=== PATIENT | female | born 1945 | race Caucasian/White ===

== ENCOUNTER 2021-02-05 11:24 | Observation (INO) | payer MEDICARE, MEDICAID ==
[2021-01-31 15:55] LABS: BASOPHILS # (AUTO) 0.1 X10'3 (0-0.2); BASOPHILS % (AUTO) 0.9 % (0-1); EOSINOPHILS # (AUTO) 0.7 X10'3 (0-0.9); EOSINOPHILS % (AUTO) 8.5 % (0-6); HEMATOCRIT 39.4 % (35.0-45.0); LYMPHOCYTES # (AUTO) 1.2 X10'3 (1.1-4.8); LYMPHOCYTES % (AUTO) 15.5 % (21-51); MEAN CORPUSCULAR HEMOGLOBIN 27.5 PG (27.0-31.0); MEAN CORPUSCULAR HGB CONC 32.9 g/dL (33.0-36.5); MEAN CORPUSCULAR VOLUME 83.4 FL (78-98); MEAN PLATELET VOLUME 8.7 FL (7.4-10.4); MONOCYTES # (AUTO) 0.7 X10'3 (0-0.9); MONOCYTES % (AUTO) 8.8 % (2-12); NEUTROPHILS # (AUTO) 5.3 X10'3 (1.8-7.7); NEUTROPHILS % (AUTO) 66.3 % (42-75); PLATELET COUNT 208 X10'3 (140-440); RED BLOOD COUNT 4.72 X10'6 (4.20-5.60); RED CELL DISTRIBUTION WIDTH 16.3 % (11.5-14.5)
[2021-01-31 16:06] LABS: PARTIAL THROMBOPLASTIN TIME 28 SECONDS (22-32)
[2021-01-31 16:10] LABS: ALANINE AMINOTRANSFERASE 97 U/L (12-78); ALBUMIN 3.8 G/DL (3.4-5.0); ALKALINE PHOSPHATASE 317 IU/L (46-116); ANION GAP 11 (8-16); ASPARTATE AMINO TRANSFERASE 74 U/L (10-37); BILIRUBIN,TOTAL 0.9 MG/DL (0.1-1.0); BLOOD UREA NITROGEN 17 MG/DL (7-18); BUN/CREATININE RATIO 12.8 (6.6-38.0); CALCIUM 9.4 MG/DL (8.5-10.1); CHLORIDE 102 MMOL/L (99-107); CREATININE 1.33 MG/DL (0.40-0.90); GLUCOSE 90 MG/DL (70-104); POTASSIUM 3.3 MMOL/L (3.5-5.1); SODIUM 140 MMOL/L (135-145); TOTAL CARBON DIOXIDE 27.4 MMOL/L (24-32); TOTAL PROTEIN 7.7 G/DL (6.4-8.2); eGFR 39 ML/MIN
[~2021-02-05] VITALS: Ht 157.5 cm; Wt 49.8 kg
[2021-02-05] VITALS (19 sets, daily range): BP systolic 140–197; BP diastolic 56–108
[~2021-02-05 11:24] MED LIST: ASPI-1071 PO; ATOR20TA66 PO; GABA-530 PO; LOSA25TA96 PO; METO50TA16 PO
[2021-02-05] MEDS ORDERED: diphenhydrAMINE 25mg capsule PO PRN (11:45)
[2021-02-05] MEDS ORDERED: LORazepam 0.5 MG tablet PO PRN (11:45)
[2021-02-05] MEDS ORDERED: nitroGLYCERIN 0.4mg SUBLingual tab SL PRN (11:45)
[2021-02-05] MEDS: normal saline 1,000 ML IV SCH ×2 (12:26→22:05)
[2021-02-05] MEDS ORDERED: FURO-150 PO (12:34)
[2021-02-05] MEDS ORDERED: ASPI81TA52 PO (12:34)
[2021-02-05] MEDS ORDERED: ATOR40TA PO (12:34)
[2021-02-05] MEDS ORDERED: LIDOcaine 1% (10mg/ml)w/preservative injection 20ml MDV ONE (13:17)
[2021-02-05] MEDS ORDERED: iohexol 350 MG/ML 50ML vial IV ONE ×2 (13:17→14:04)
[2021-02-05] MEDS ORDERED: iohexol 350MG/ML 100ml bottle IV ONE (13:17)
[2021-02-05] MEDS ORDERED: fentaNYL/PF 50MCG/1 ML 2ML syringe ONE (13:18)
[2021-02-05] MEDS ORDERED: midazolam 1 mg/ML 2ml injection ONE (13:18)
[2021-02-05] MEDS ORDERED: hydrALAZINE 20mg/ml inj. IV ONE (14:03)
[2021-02-05] MEDS ORDERED: proCHLORperazine 10 MG/2 ml inj ONE (14:31)
[2021-02-05] MEDS ORDERED: enalaprilat dihydrate 2.5mg/2ml vial IV ONE (14:35)
[2021-02-05] MEDS ORDERED: nitroGLYCERIN-Tridil 50MG/D5W 250 ML IV ONE (14:35)
[2021-02-05 14:46] LABS: ISTAT HGB ART 11.6 g/dl (12.0-16.0); ISTAT Hct ART 34 %PCV (35-48); ISTAT O2 SATURATION ARTERIAL 98 % (95-98); ISTAT SOURCE ART
[2021-02-05] MEDS ORDERED: magnesium Cl slow-release 64mg tablet PO PRN (16:00)
[2021-02-05] MEDS ORDERED: ondansetron/PF 4mg/2ml inj IV PRN ×2 (16:00→17:05)
[2021-02-05] MEDS ORDERED: HYDROcodone/acetaminophen 10/325mg tab PO PRN ×2 (16:00→17:05)
[2021-02-05] MEDS ORDERED: acetaminophen 325mg tablet PO PRN ×2 (16:00)
[2021-02-05] MEDS ORDERED: HYDROcodone/acetaminophen 5mg/325mg tablet PO PRN ×2 (16:00→17:05)
[2021-02-05] MEDS ORDERED: mag hydrox/Alum hydrox/simeth 30ml oral suspension PO PRN (16:00)
[2021-02-05] MEDS ORDERED: potassium Cl 40MEQ/1/2NS 520ml 520 ML IV PRN ×2 (16:00)
[2021-02-05] MEDS ORDERED: magnesium 2GM in 50ml NS 50 ML IV PRN (16:00)
[2021-02-05] MEDS ORDERED: magnesium 4gm in 100ml NS 100 ML IV PRN (16:00)
[2021-02-05] MEDS ORDERED: normal saline 1000ml 1,000 ML IV SCH (16:00)
[2021-02-05] MEDS ORDERED: magnesium hydroxide 30ml (MOM) UD suspension PO PRN (16:00)
[2021-02-05] MEDS ORDERED: potassium Cl 20 mEq SR tablet PO PRN (16:00)
[2021-02-05] MEDS ORDERED: proCHLORperazine 10 MG/2 ml inj IV PRN (17:05)
[2021-02-05] MEDS ORDERED: OXAZEpam 15mg capsule PO PRN (17:05)
[2021-02-05] MEDS: metoprolol tartrate 12.5mg (1/2 tablet) PO SCH ×2 (17:37→20:38)
--- NOTE | 2021-02-05 18:45 | NUR ---
Problems reprioritized. Patient report given, questions answered & plan of care reviewed with MARIELLA Ross, I will be taking pt to room 3021 shortly.
--- NOTE | 2021-02-05 19:00 | NUR ---
VSS, pt's R groin dsg CDI, pt is in room #3021 stable and in no distress at this time, pt's , son and pt's RN at pts bedside.
[2021-02-05] MEDS: losartan 25mg tablet PO SCH (20:38)
[2021-02-05] MEDS: gabapentin 100mg capsule PO SCH (20:39)
[2021-02-05] MEDS: potassium Cl 20 mEq SR tablet PO PRN (20:39)
[2021-02-05] MEDS: K and/or MAG REPLACEMENT MC SCH (20:41)
[2021-02-05] MEDS ORDERED: temazepam 15mg capsule PO PRN (21:00)
--- NOTE | 2021-02-05 21:51 | NUR ---
PAGER ID: [phone] MESSAGE: [id number] Melvi middleton , post cath today, htn ranging 180-200 sys and 80-100 mary . hr is nsr in 80s . no chest pain of any kind [facility]
[2021-02-05] MEDS: hydrALAZINE 20mg/ml inj. IV PRN (22:01)
[2021-02-06] MEDS: potassium Cl 20 mEq SR tablet PO PRN ×2 (00:28→05:04)
[2021-02-06 00:38] VITALS: BP 164/70
[2021-02-06 02:00] VITALS: BP 160/73
[2021-02-06 06:00] VITALS: BP 163/88
--- NOTE | 2021-02-06 06:27 | NUR ---
Problems reprioritized. Patient report given, questions answered & plan of care reviewed with MARIELLA Ochoa.
[2021-02-06 07:10] LABS: BASOPHILS # (AUTO) 0.1 X10'3 (0-0.2); BASOPHILS % (AUTO) 1.2 % (0-1); EOSINOPHILS # (AUTO) 0.6 X10'3 (0-0.9); EOSINOPHILS % (AUTO) 7.8 % (0-6); HEMATOCRIT 32.1 % (35.0-45.0); HEMOGLOBIN 10.6 g/dl (12.0-16.0); LYMPHOCYTES # (AUTO) 1.3 X10'3 (1.1-4.8); LYMPHOCYTES % (AUTO) 15.4 % (21-51); MEAN CORPUSCULAR HGB CONC 33.2 g/dL (33.0-36.5); MEAN CORPUSCULAR VOLUME 84.4 FL (78-98); MEAN PLATELET VOLUME 8.6 FL (7.4-10.4); MONOCYTES # (AUTO) 0.9 X10'3 (0-0.9); MONOCYTES % (AUTO) 10.6 % (2-12); NEUTROPHILS # (AUTO) 5.3 X10'3 (1.8-7.7); PLATELET COUNT 209 X10'3 (140-440); RED CELL DISTRIBUTION WIDTH 16.6 % (11.5-14.5); WHITE BLOOD COUNT 8.2 X10'3 (4.5-11.0)
[2021-02-06 07:21] LABS: PARTIAL THROMBOPLASTIN TIME 29 SECONDS (22-32)
[2021-02-06] MEDS: gabapentin 100mg capsule PO SCH ×2 (07:27→12:24)
[2021-02-06] MEDS: losartan 25mg tablet PO SCH (07:28)
[2021-02-06] MEDS: metoprolol tartrate 12.5mg (1/2 tablet) PO SCH (07:28)
[2021-02-06 07:32] LABS: ALANINE AMINOTRANSFERASE 51 U/L (12-78); ALBUMIN 2.6 G/DL (3.4-5.0); ALBUMIN/GLOBULIN RATIO 0.8 (1.1-1.5); ALKALINE PHOSPHATASE 320 IU/L (46-116); ANION GAP 10 (8-16); ASPARTATE AMINO TRANSFERASE 34 U/L (10-37); BILIRUBIN,TOTAL 0.6 MG/DL (0.1-1.0); BLOOD UREA NITROGEN 14 MG/DL (7-18); BUN/CREATININE RATIO 12.5 (6.6-38.0); CALCIUM 8.4 MG/DL (8.5-10.1); CHLORIDE 109 MMOL/L (99-107); CHOLESTEROL 136 MG/DL (0-200); CREATININE 1.12 MG/DL (0.40-0.90); GLUCOSE 85 MG/DL (70-104); HDL CHOLESTEROL 46 MG/DL (35-60); LDL CHOLESTEROL 70 MG/DL (50-100); MAGNESIUM 1.6 MG/DL (1.5-2.4); POTASSIUM 3.8 MMOL/L (3.5-5.1); SODIUM 141 MMOL/L (135-145); TOTAL CARBON DIOXIDE 21.8 MMOL/L (24-32); TOTAL PROTEIN 5.8 G/DL (6.4-8.2); TRIGLYCERIDES 69 MG/DL (20-135); eGFR 47 ML/MIN
[2021-02-06] MEDS ORDERED: furosemide 40mg tablet PO SCH (08:00)
[2021-02-06] MEDS ORDERED: potassium chloride 10mEq ER tablet PO SCH (08:00)
[2021-02-06] MEDS ORDERED: atorvastatin 20mg tablet PO SCH (08:00)
[2021-02-06] MEDS ORDERED: aspirin 81mg tablet.DR PO SCH (08:00)
[2021-02-06] MEDS: K and/or MAG REPLACEMENT MC SCH (08:00)
[2021-02-06 09:03] LABS: ABG HCO3 20.9 mmol/L (22.0-26.0); ABG OXYGEN SATURATION 94.6 % (94-97); ABG PCO2 (T) 33.5 mmHg (32.0-45.0); ABG PO2 (T) 72.3 mmHg (75.0-100.0); ALLEN'S TEST POSITIVE; FCOHb 0.4 % (0.0-3.9); FMetHb 0.4 % (0.0-1.5); FO2Hb 93.8 % (94-97); TOTAL HEMOGLOBIN 11.9 G/dl (12.0-16.0)
[2021-02-06] MEDS ORDERED: albuterol 2.5 MG/3 ML nebule NEB ONE (09:15)
[2021-02-06] MEDS: normal saline 1,000 ML IV SCH (09:30)
[2021-02-06] MEDS ORDERED: metoprolol tartrate 1mg/ml inj IV PRN (09:30)
[2021-02-06] MEDS ORDERED: atropine 0.4 mg/ml 20ml vial IV PRN (09:30)
[2021-02-06] MEDS ORDERED: IODIXANOL 320 MG/ML INFUS..BTL 100ML IV ONE (10:43)
[2021-02-06] MEDS ORDERED: IODIXANOL 320 MG/ML INFUS..BTL 50ML IV ONE (10:43)
[2021-02-06 11:00] VITALS: BP 177/84
[2021-02-06] MEDS ORDERED: metoprolol tartrate 12.5mg (1/2 tablet) PO ONE (12:00)
[2021-02-06] MEDS: hydrALAZINE 20mg/ml inj. IV PRN (12:25)
--- NOTE | 2021-02-06 13:22 | NUR ---
Patient was seen by Dr. Johnson and Dr. Majano for TAV evaluation. Family at bedside. Information provided to patient about the TAVR procedure. KCCQ12 completed.
[2021-02-06 14:32] VITALS: BP 138/74
[2021-02-06] MEDS ORDERED: LOP25T PO (15:21)
[2021-02-06] MEDS ORDERED: metoprolol tartrate 25mg tablet PO SCH (20:00)
--- NOTE | 2021-02-07 14:05 | NUR ---
CASE MANAGEMENT DISCHARGE FOLLOW UP: Spoke with pt via telephone. Reports that she is doing pretty good, a little tired still; denies SOB, CP/palpitations, dizziness. Verbalizes understanding of s/sx requiring further evaluation/emergent assistance. Verbalizes understanding of new and current medications. Verbalizes compliance with MD discharge instructions. Verbalizes understanding of the importance in making/keeping follow-up appointments, will call to make appointment, declines need for assistance. States no further questions/concerns at this time.
== END 2021-02-06 17:25 | disposition home or self-care (01) ==
LOC: SSTAY O 11:24 → PCU 3S 15:58
PROVIDERS: ADMIT Family Medicine; ATTEND Family Medicine
DX: I25.5 Ischemic cardiomyopathy (principal); I08.0 Rheumatic disorders of both mitral and aortic valves; I25.10 Atherosclerotic heart disease of native coronary artery without angina pectoris; I13.0 Hypertensive heart and chronic kidney disease with heart failure and stage 1 through stage 4 chronic kidney disease, or unspecified chronic kidney disease; I50.40 Unspecified combined systolic (congestive) and diastolic (congestive) heart failure; N18.4 Chronic kidney disease, stage 4 (severe); E78.5 Hyperlipidemia, unspecified; G62.9 Polyneuropathy, unspecified; I49.3 Ventricular premature depolarization; I48.91 Unspecified atrial fibrillation; J44.9 Chronic obstructive pulmonary disease, unspecified; F17.200 Nicotine dependence, unspecified, uncomplicated; Z79.82 Long term (current) use of aspirin; Z79.899 Other long term (current) drug therapy
CPT/HCPCS: 36415; 36600; 71046; 71275; 74174; 80053; 80061; 82803; 83735; 85014; 85018; 85025; 85610; 85730; 87081; 93005; 93306; 93460; 93880; 94010; 96361; 96374; 96376; C1760; C1769; G0378; J0360; J0780; J1644; J2001; J2250; J3010; J7030; Q0163; Q9967; 99152; 99153; A4620; A6258; C1751; J3490

== ENCOUNTER 2021-04-10 12:39 | Outpatient (CLI) | payer MEDICARE, MEDICAID ==
[~2021-04-10 12:39] MED LIST changes: -ASPI-1071 PO; +ASPI81TA52 PO; -ATOR20TA66 PO; +ATOR40TA PO; +FURO-150 PO; +METO25TA6 PO; -METO50TA16 PO
== END 2021-04-10 23:59 | disposition home or self-care (01) ==
LOC: TAVR 12:39 → RAD 23:59
PROVIDERS: ATTEND Internal Medicine Cardiovascular Disease
DX: I34.0 Nonrheumatic mitral (valve) insufficiency (principal); Z95.2 Presence of prosthetic heart valve; Z48.812 Encounter for surgical aftercare following surgery on the circulatory system
CPT/HCPCS: 93005; 93306

== ENCOUNTER 2021-08-07 18:34 | Inpatient (IN) | payer MEDICARE, MEDICAID ==
[~2021-08-07] VITALS: Ht 160 cm; Wt 55.0 kg
[2021-08-07 20:21] LABS: BASOPHILS # (AUTO) 0.1 X10'3 (0-0.2); BASOPHILS % (AUTO) 0.9 % (0-1); EOSINOPHILS # (AUTO) 0.1 X10'3 (0-0.9); EOSINOPHILS % (AUTO) 1.6 % (0-6); HEMATOCRIT 22.6 % (35.0-45.0); HEMOGLOBIN 7.6 g/dl (12.0-16.0); LYMPHOCYTES # (AUTO) 1.2 X10'3 (1.1-4.8); MEAN CORPUSCULAR HEMOGLOBIN 28.9 PG (27.0-31.0); MEAN CORPUSCULAR HGB CONC 33.6 g/dL (33.0-36.5); MEAN PLATELET VOLUME 8.9 FL (7.4-10.4); MONOCYTES # (AUTO) 0.7 X10'3 (0-0.9); NEUTROPHILS # (AUTO) 6.6 X10'3 (1.8-7.7); NEUTROPHILS % (AUTO) 75.5 % (42-75); PLATELET COUNT 121 X10'3 (140-440); RED BLOOD COUNT 2.63 X10'6 (4.20-5.60); RED CELL DISTRIBUTION WIDTH 16.2 % (11.5-14.5); WHITE BLOOD COUNT 8.7 X10'3 (4.5-11.0)
[2021-08-07 20:31] LABS: ALBUMIN 2.5 G/DL (3.4-5.0); ANION GAP 12 (8-16); BLOOD UREA NITROGEN 23 MG/DL (7-18); BUN/CREATININE RATIO 16.8 (6.6-38.0); CHLORIDE 113 MMOL/L (99-107); CREATININE 1.37 MG/DL (0.40-0.90); GLUCOSE 97 MG/DL (70-104); POTASSIUM 3.6 MMOL/L (3.5-5.1); SODIUM 146 MMOL/L (135-145); TOTAL CARBON DIOXIDE 20.9 MMOL/L (24-32); eGFR 37 ML/MIN
[2021-08-07] MEDS ORDERED: iohexol 300mg/ml 100ml inj. ONE (20:38)
[2021-08-07] MEDS ORDERED: temazepam 15mg capsule PO PRN (21:00)
[2021-08-07] MEDS ORDERED: acetaminophen 325mg tablet PO ONE (21:35)
--- NOTE | 2021-08-07 23:00 | NUR ---
ASSIST TO COMMODE, BLOOD CLOTS AND DARK RED BLOOD IN COMMODE
[2021-08-07] MEDS ORDERED: HYDROcodone/acetaminophen 5mg/325mg tablet PO PRN (23:40)
[2021-08-07] MEDS ORDERED: ondansetron 4mg rapidly disintigrating tab PO PRN (23:40)
[2021-08-07] MEDS ORDERED: acetaminophen 650mg rectal suppository RC PRN (23:40)
[2021-08-07] MEDS ORDERED: morphine 2 MG/ML inj. syringe IV PRN ×2 (23:40)
[2021-08-07] MEDS ORDERED: bisacodyl 10mg suppository rectal RC PRN (23:40)
[2021-08-07] MEDS ORDERED: acetaminophen 325mg tablet PO PRN ×2 (23:40)
[2021-08-07] MEDS ORDERED: magnesium hydroxide 30ml (MOM) UD suspension PO PRN (23:40)
[2021-08-07] MEDS ORDERED: ondansetron/PF 4mg/2ml inj IV PRN (23:40)
[2021-08-07] MEDS ORDERED: diphenhydrAMINE 50 mg/ml inj IV PRN (23:40)
[2021-08-07] MEDS ORDERED: diphenhydrAMINE 25mg capsule PO PRN (23:40)
[2021-08-07] MEDS ORDERED: mag hydrox/Alum hydrox/simeth 30ml oral suspension PO PRN (23:40)
[2021-08-08] VITALS (11 sets, daily range): BP systolic 114–144; BP diastolic 61–120
[2021-08-08 00:07] LABS: HEMOGLOBIN A1C 6.3 % (4.5-6.2)
[2021-08-08 00:08] LABS: PARTIAL THROMBOPLASTIN TIME 26 SECONDS (22-32)
[2021-08-08 00:13] LABS: CREATINE KINASE 71 U/L (26-192); LIPASE 73 U/L (73-393); MAGNESIUM 2.1 MG/DL (1.5-2.4); PHOSPHORUS 3.6 MG/DL (2.3-4.5)
[2021-08-08 00:16] LABS: TROPONIN I 1.44 NG/ML (0.0-0.05)
[2021-08-08] MEDS: normal saline 1000ml 1,000 ML IV SCH ×3 (00:18→21:25)
--- NOTE | 2021-08-08 00:39 | NUR ---
ASSUMED CARE OF PT, PT RESTING COMFORTABLY, EQUAL RISE AND FALL OF CHEST
[2021-08-08 00:59] LABS: BASOPHILS # (AUTO) 0.1 X10'3 (0-0.2); BASOPHILS % (AUTO) 0.7 % (0-1); EOSINOPHILS % (AUTO) 0.5 % (0-6); LYMPHOCYTES # (AUTO) 1.3 X10'3 (1.1-4.8); LYMPHOCYTES % (AUTO) 14.7 % (21-51); MEAN CORPUSCULAR HEMOGLOBIN 29.4 PG (27.0-31.0); MEAN CORPUSCULAR HGB CONC 34.1 g/dL (33.0-36.5); MEAN CORPUSCULAR VOLUME 86.1 FL (78-98); MEAN PLATELET VOLUME 8.5 FL (7.4-10.4); MONOCYTES # (AUTO) 0.6 X10'3 (0-0.9); MONOCYTES % (AUTO) 6.4 % (2-12); NEUTROPHILS # (AUTO) 7.1 X10'3 (1.8-7.7); NEUTROPHILS % (AUTO) 77.7 % (42-75); PLATELET COUNT 126 X10'3 (140-440); RED BLOOD COUNT 2.35 X10'6 (4.20-5.60); RED CELL DISTRIBUTION WIDTH 15.9 % (11.5-14.5); WHITE BLOOD COUNT 9.1 X10'3 (4.5-11.0)
[2021-08-08 01:02] LABS: HEMOGLOBIN 6.9 g/dl (12.0-16.0)
--- NOTE | 2021-08-08 01:02 | NUR ---
CRITICAL LAB RESULT RECEIVED; HGB 6.9 HCT 20.3
[2021-08-08 01:03] LABS: HEMATOCRIT 20.3 % (35.0-45.0)
[2021-08-08] MEDS: pantoprazole 40MG/NS 100ML BAG 100 ML IV SCH ×4 (01:09→21:45)
[2021-08-08 01:12] LABS: ALANINE AMINOTRANSFERASE 16 U/L (12-78); ALBUMIN 2.5 G/DL (3.4-5.0); ALKALINE PHOSPHATASE 79 IU/L (46-116); ANION GAP 11 (8-16); ASPARTATE AMINO TRANSFERASE 26 U/L (10-37); BILIRUBIN,TOTAL 0.6 MG/DL (0.1-1.0); BLOOD UREA NITROGEN 25 MG/DL (7-18); BUN/CREATININE RATIO 17.1 (6.6-38.0); CALCIUM 7.9 MG/DL (8.5-10.1); CHLORIDE 111 MMOL/L (99-107); CREATININE 1.46 MG/DL (0.40-0.90); GLUCOSE 102 MG/DL (70-104); POTASSIUM 3.8 MMOL/L (3.5-5.1); SODIUM 145 MMOL/L (135-145); TOTAL CARBON DIOXIDE 22.7 MMOL/L (24-32); TOTAL PROTEIN 4.9 G/DL (6.4-8.2); eGFR 35 ML/MIN
[2021-08-08 01:22] LABS: TROPONIN I 3.73 NG/ML (0.0-0.05)
--- NOTE | 2021-08-08 01:22 | NUR ---
SPOKE TO DR WHITNEY CONCERNING PT'S HGB LEVELS.
--- NOTE | 2021-08-08 01:23 | NUR ---
RECIEVED NEW CRITICAL: TROP 3.73. REPORTED VALUE TO DR WHITNEY. NO NEW ORDERS AT THIS TIME.
--- NOTE | 2021-08-08 01:59 | NUR ---
PUT IN ORDERS FOR PRBCS, PER VERBAL ORDER FROM DR WHITNEY. HE REQUESTED 2 UNITS TO BE GIVEN. PT STABLE.
[2021-08-08 02:44] LABS: BASOPHILS # (AUTO) 0.1 X10'3 (0-0.2); BASOPHILS % (AUTO) 0.9 % (0-1); EOSINOPHILS # (AUTO) 0.1 X10'3 (0-0.9); EOSINOPHILS % (AUTO) 0.6 % (0-6); LYMPHOCYTES # (AUTO) 1.8 X10'3 (1.1-4.8); LYMPHOCYTES % (AUTO) 19.4 % (21-51); MEAN CORPUSCULAR HEMOGLOBIN 29.2 PG (27.0-31.0); MEAN CORPUSCULAR HGB CONC 33.7 g/dL (33.0-36.5); MEAN CORPUSCULAR VOLUME 86.9 FL (78-98); MEAN PLATELET VOLUME 8.7 FL (7.4-10.4); MONOCYTES # (AUTO) 0.7 X10'3 (0-0.9); MONOCYTES % (AUTO) 7.3 % (2-12); NEUTROPHILS # (AUTO) 6.8 X10'3 (1.8-7.7); NEUTROPHILS % (AUTO) 71.8 % (42-75); PLATELET COUNT 138 X10'3 (140-440); RED BLOOD COUNT 2.37 X10'6 (4.20-5.60); RED CELL DISTRIBUTION WIDTH 16.5 % (11.5-14.5); WHITE BLOOD COUNT 9.5 X10'3 (4.5-11.0)
[2021-08-08 02:59] LABS: HEMOGLOBIN 6.9 g/dl (12.0-16.0)
[2021-08-08 03:00] LABS: HEMATOCRIT 20.6 % (35.0-45.0)
--- NOTE | 2021-08-08 03:11 | NUR ---
CALLED DR WHITNEY CONCERNING PT'S NEW TROPONIN RESULT. AWARE. NO NEW ORDERS AT THIS TIME. PT RECIEVING BLOOD CURRENTLY AND DENIES ANY SYMPTOMS.
[2021-08-08 07:42] LABS: ALANINE AMINOTRANSFERASE 14 U/L (12-78); ALBUMIN/GLOBULIN RATIO 1.1 (1.1-1.5); ALKALINE PHOSPHATASE 67 IU/L (46-116); ANION GAP 9 (8-16); ASPARTATE AMINO TRANSFERASE 35 U/L (10-37); BILIRUBIN,TOTAL 1.2 MG/DL (0.1-1.0); BLOOD UREA NITROGEN 22 MG/DL (7-18); BUN/CREATININE RATIO 19.6 (6.6-38.0); CALCIUM 6.4 MG/DL (8.5-10.1); CHLORIDE 119 MMOL/L (99-107); CREATININE 1.12 MG/DL (0.40-0.90); GLUCOSE 87 MG/DL (70-104); POTASSIUM 3.1 MMOL/L (3.5-5.1); SODIUM 146 MMOL/L (135-145); TOTAL CARBON DIOXIDE 18.4 MMOL/L (24-32); TOTAL PROTEIN 3.9 G/DL (6.4-8.2); eGFR 47 ML/MIN
[2021-08-08] MEDS ORDERED: PEG 3350/Na sulf,bicarb,Cl/KCl oral sol 4 liter bottle PO ONE ×2 (08:55→18:00)
[2021-08-08] MEDS: gabapentin 100mg capsule PO SCH ×3 (09:11→20:04)
[2021-08-08] MEDS: docusate sod 100mg capsule PO SCH ×2 (09:11→20:04)
[2021-08-08] MEDS: atorvastatin 20mg tablet PO SCH (09:11)
[2021-08-08] MEDS: nitroGLYCERIN 0.2mg/hour patch TD SCH (09:11)
[2021-08-08] MEDS: metoprolol tartrate 25mg tablet PO SCH ×2 (09:12→20:05)
--- NOTE | 2021-08-08 10:45 | NUR ---
Pt had copious burgundy stool with clots. Pt is drinking golytely.
[2021-08-08 12:23] LABS: BASOPHILS # (AUTO) 0.1 X10'3 (0-0.2); BASOPHILS % (AUTO) 0.7 % (0-1); EOSINOPHILS % (AUTO) 0.3 % (0-6); HEMATOCRIT 26.4 % (35.0-45.0); LYMPHOCYTES # (AUTO) 1.3 X10'3 (1.1-4.8); LYMPHOCYTES % (AUTO) 12.7 % (21-51); MEAN CORPUSCULAR HEMOGLOBIN 29.7 PG (27.0-31.0); MEAN CORPUSCULAR HGB CONC 34.1 g/dL (33.0-36.5); MEAN CORPUSCULAR VOLUME 87.2 FL (78-98); MEAN PLATELET VOLUME 9.1 FL (7.4-10.4); MONOCYTES # (AUTO) 0.8 X10'3 (0-0.9); MONOCYTES % (AUTO) 7.8 % (2-12); NEUTROPHILS # (AUTO) 7.9 X10'3 (1.8-7.7); NEUTROPHILS % (AUTO) 78.5 % (42-75); PLATELET COUNT 119 X10'3 (140-440); RED BLOOD COUNT 3.03 X10'6 (4.20-5.60); RED CELL DISTRIBUTION WIDTH 15.1 % (11.5-14.5); WHITE BLOOD COUNT 10.1 X10'3 (4.5-11.0)
--- NOTE | 2021-08-08 13:00 | NUR ---
Attempted to insert rect. tube. Pt was unable to tolerate the size of the tube. Pt continues to drink golytly and have copious burgundy stool with blood clots.
--- NOTE | 2021-08-08 16:23 | NUR ---
Report given to MARIELLA Maldonado in PCU.
--- NOTE | 2021-08-08 18:53 | NUR ---
Problems reprioritized. Patient report given, questions answered & plan of care reviewed with MARIELLA Barragan.
[2021-08-09] VITALS (7 sets, daily range): BP systolic 101–167; BP diastolic 58–100
--- NOTE | 2021-08-09 00:15 | NUR ---
Notified MD of patient potassium level of 3.1. Notified MD patient is currently NPO. Ordered to administer potassium IV per protocol. Will continue to monitor.
[2021-08-09] MEDS ORDERED: magnesium Cl slow-release 64mg tablet PO PRN (00:50)
[2021-08-09] MEDS ORDERED: magnesium 4gm in 100ml NS 100 ML IV PRN (00:50)
[2021-08-09] MEDS ORDERED: potassium Cl 40MEQ/1/2NS 520ml 520 ML IV PRN (00:50)
[2021-08-09] MEDS ORDERED: potassium Cl 20 mEq SR tablet PO PRN ×2 (00:50)
[2021-08-09] MEDS: pantoprazole 40MG/NS 100ML BAG 100 ML IV SCH ×2 (01:41→07:59)
[2021-08-09 06:26] LABS: BASOPHILS # (AUTO) 0.1 X10'3 (0-0.2); BASOPHILS % (AUTO) 0.4 % (0-1); EOSINOPHILS % (AUTO) 0.1 % (0-6); LYMPHOCYTES # (AUTO) 2.3 X10'3 (1.1-4.8); LYMPHOCYTES % (AUTO) 15.4 % (21-51); MEAN CORPUSCULAR HEMOGLOBIN 29.2 PG (27.0-31.0); MEAN CORPUSCULAR HGB CONC 33.5 g/dL (33.0-36.5); MEAN CORPUSCULAR VOLUME 87.2 FL (78-98); MEAN PLATELET VOLUME 9.2 FL (7.4-10.4); MONOCYTES # (AUTO) 0.9 X10'3 (0-0.9); MONOCYTES % (AUTO) 6.3 % (2-12); NEUTROPHILS # (AUTO) 11.7 X10'3 (1.8-7.7); NEUTROPHILS % (AUTO) 77.8 % (42-75); PLATELET COUNT 124 X10'3 (140-440); RED BLOOD COUNT 2.22 X10'6 (4.20-5.60); RED CELL DISTRIBUTION WIDTH 15.5 % (11.5-14.5)
--- NOTE | 2021-08-09 06:33 | NUR ---
patient in room resting at this time. patient changed multiple times throughout night. bloody discharge noted. patient NPO since midnight. call light and personal belongings placed within reach. patient C/O pain to upper back. pain medication administered per order. report given to AM nurse.
[2021-08-09 06:38] LABS: HEMATOCRIT 19.4 % (35.0-45.0); HEMOGLOBIN 6.5 g/dl (12.0-16.0)
[2021-08-09] MEDS: normal saline 1000ml 1,000 ML IV SCH (06:39)
[2021-08-09 07:01] LABS: ALANINE AMINOTRANSFERASE 25 U/L (12-78); ALBUMIN 2.3 G/DL (3.4-5.0); ALBUMIN/GLOBULIN RATIO 1.1 (1.1-1.5); ALKALINE PHOSPHATASE 66 IU/L (46-116); ANION GAP 17 (8-16); ASPARTATE AMINO TRANSFERASE 144 U/L (10-37); BILIRUBIN,TOTAL 0.6 MG/DL (0.1-1.0); BLOOD UREA NITROGEN 25 MG/DL (7-18); BUN/CREATININE RATIO 18.2 (6.6-38.0); CALCIUM 7.4 MG/DL (8.5-10.1); CHLORIDE 112 MMOL/L (99-107); CREATININE 1.37 MG/DL (0.40-0.90); GLUCOSE 119 MG/DL (70-104); POTASSIUM 3.6 MMOL/L (3.5-5.1); SODIUM 147 MMOL/L (135-145); TOTAL CARBON DIOXIDE 18.2 MMOL/L (24-32); TOTAL PROTEIN 4.4 G/DL (6.4-8.2); eGFR 37 ML/MIN
[2021-08-09] MEDS ORDERED: K and/or MAG REPLACEMENT MC SCH (08:00)
[2021-08-09] MEDS: gabapentin 100mg capsule PO SCH (08:21)
[2021-08-09] MEDS: docusate sod 100mg capsule PO SCH (08:22)
[2021-08-09] MEDS: metoprolol tartrate 25mg tablet PO SCH (08:23)
[2021-08-09] MEDS: atorvastatin 20mg tablet PO SCH (08:23)
[2021-08-09] MEDS: nitroGLYCERIN 0.2mg/hour patch TD SCH (08:30)
--- NOTE | 2021-08-09 08:50 | NUR ---
Rapid response called due to pt aloc and low b/p Pt c/o of SOB Went from room air to 6 l/min n/c Pt nods to questions Restless Nods head yes to chest pain EKG done Dr Murrieta at bedside and reveiwed cbc and tropoin drawn Sat 96 % b/p stable Pt left in PCU
[2021-08-09 10:12] LABS: MEAN CORPUSCULAR HEMOGLOBIN 29.7 PG (27.0-31.0); MEAN CORPUSCULAR VOLUME 95.9 FL (78-98); PLATELET COUNT 127 X10'3 (140-440); RED BLOOD COUNT 2.21 X10'6 (4.20-5.60); RED CELL DISTRIBUTION WIDTH 17.1 % (11.5-14.5); WHITE BLOOD COUNT 20.3 X10'3 (4.5-11.0)
[2021-08-09 10:13] LABS: HEMOGLOBIN 6.6 g/dl (12.0-16.0)
[2021-08-09 10:14] LABS: HEMATOCRIT 21.2 % (35.0-45.0)
[2021-08-09 10:56] LABS: TROPONIN I 50.25 NG/ML (0.0-0.05)
[2021-08-09 11:37] LABS: BASOPHILS # (AUTO) 0.1 X10'3 (0-0.2); BASOPHILS % (AUTO) 0.5 % (0-1); EOSINOPHILS # (AUTO) 0.1 X10'3 (0-0.9); EOSINOPHILS % (AUTO) 0.5 % (0-6); HEMATOCRIT 23.3 % (35.0-45.0); HEMOGLOBIN 7.2 g/dl (12.0-16.0); LYMPHOCYTES # (AUTO) 2.8 X10'3 (1.1-4.8); LYMPHOCYTES % (AUTO) 10.4 % (21-51); MEAN CORPUSCULAR HEMOGLOBIN 29.4 PG (27.0-31.0); MEAN PLATELET VOLUME 9.1 FL (7.4-10.4); MONOCYTES # (AUTO) 1.6 X10'3 (0-0.9); MONOCYTES % (AUTO) 5.9 % (2-12); NEUTROPHILS # (AUTO) 22.4 X10'3 (1.8-7.7); NEUTROPHILS % (AUTO) 82.7 % (42-75); PLATELET COUNT 121 X10'3 (140-440); RED BLOOD COUNT 2.45 X10'6 (4.20-5.60); RED CELL DISTRIBUTION WIDTH 16.7 % (11.5-14.5)
[2021-08-09 12:13] LABS: ANISOCYTOSIS 1+; NUCLEATED RED BLOOD CELLS 1 /100WBC (0-0); PLATELET ESTIMATE DECREASED; TOTAL CELLS COUNTED 100
[2021-08-09] MEDS ORDERED: furosemide 20 MG/2 ML vial IV SCH (12:35)
[2021-08-09] MEDS ORDERED: fentaNYL/PF 50MCG/1 ML 2ML syringe ONE (13:01)
[2021-08-09] MEDS ORDERED: MIDAZolam 1 MG/ML 5ML VIAL ONE (13:01)
--- NOTE | 2021-08-09 13:30 | NUR ---
Called for a stroke alert, nurse states patient was becoming increasingly confused and had facial droop but moving all extremities. When I arrived to the room family is present and they state she sat up about a hour ago and touched her chest and complained of indigestion and was unable to swallow a pill. Patients eyes are closed and is non verbal but able to move all extremities without difficulty. rapid response was also called and the physicians state this is more due to her heart and her ABG's are abnormal so I am not needed at this time.
[2021-08-09 13:47] LABS: ABG BASE EXCESS -29.8 mmol/L (-2.0-2.0); ABG HCO3 5.3 mmol/L (22.0-26.0); ABG OXYGEN SATURATION 97.4 % (94-97); ABG PCO2 (T) 45.3 mmHg (32.0-45.0); ABG PO2 (T) 194.8 mmHg (75.0-100.0); ALLEN'S TEST POSITIVE; FCOHb 0.3 % (0.0-3.9); FLOW 15 L/min; FMetHb 0.6 % (0.0-1.5); FO2Hb 96.5 % (94-97); TOTAL HEMOGLOBIN 8.7 G/dl (12.0-16.0)
[2021-08-09] MEDS ORDERED: sodium bicarbonate (8.4%) 1 mEq/ml syringe ONE ×3 (14:12→16:00)
--- NOTE | 2021-08-09 14:15 | NUR ---
Rapid response called due to PT having gone to [facility] for p/o stroke alert and mentation deteriorating Dr. Ward called to bedside Critical care DR. Robles to unable to reach hospitalist Dr. Murrieta arrived at same time Pt pale unresponsive with shallow resp ABG drawn Family at bedside who spoke with Dr. Bloom They are aware Pt having AL and unable to do anything thru cardiology Want everything done when discussed code status Pt brought to [id number]
--- NOTE | 2021-08-09 14:24 | NUR ---
RN IS TO DOCUMENT YES TO ALL APPLICABLE AREAS Pronouncement of : 1. Time Physician Notified:1623 2. Date of :08/09/21 3. Time of : 1623 4. DNR/Withdraw life support documented:Verbally by MD and Family 5. Monitor strip has been placed on chart:yes 6. Assessment process is of one-minute duration and includes following criteria: a) Patient is unresponsive to all stimuli: yes b) Pupils fixed and non-reactive:yes c) Auscultation of precordium reveals absence of heart tones:yes d) Auscultation of lungs reveals absence of breath sounds:yes e) Absence of blood pressure / all vital signs:yes f) QRS complexes are not present on monitor / EKG strip:yes g) Pacer spikes without capture:yes 4. Comments:
--- NOTE | 2021-08-09 14:30 | NUR ---
1430 to 16:[address] Urbina intubated and placed central line and A line Fluids and Levophed gtt stared for low b/p Pt brought in to bedside to talk with the DR. regarding Echo finding Decision made to make pt DNR Mult doses of epinephrine and epi ellie gtt started 1 unit of PRBC given for low hgb Mult doses of bicarb given to increase HR Atropine given x1 Family at bedside Waiting for son to arrive Once Family all present No further IVP of epi or other drugs used The Family was ready for things to end Pt pronouned at 16:24
--- NOTE | 2021-08-09 14:34 | NUR ---
PATIENT HAD ONE UNIT OF PRBCS THIS SHIFT. DUE TO CHANGE IN OXYGEN REQUIREMENTS AND CONTINUED SOB, RAPID RESPONSE WAS CALLED .TROPIN INCREASED TO 50.25; DR. SALINAS APPRISED.NEURO CHANGES WITH AGITATION AND RT FACIAL DROOP NOTED; PATIENT SENT TO CT,RETURNED TO ROOM WBC NOW UP TO 27, O2 DEMANDS INCREASED OXYGEN INCREASED TO 10ML . ABGS DRAWN, SECOND RAPID CALLED. PATIENT TRANSFERRED TO ROOM 2041 Addendum: 08/09/21 at 1802 by Gladys Talley RN Amended: Links added.
[2021-08-09] MEDS ORDERED: NORepinephrine 8mg/ 250ml NS 250 ML IV ONE (14:44)
[2021-08-09] MEDS ORDERED: NORepinephrine 8mg/ 250ml NS 250 ML IV SCH (14:45)
[2021-08-09] MEDS ORDERED: sodium bicarbonate (8.4%) 1 mEq/ml syringe IV ONE (14:45)
[2021-08-09 14:51] LABS: ABG BASE EXCESS -13.5 mmol/L (-2.0-2.0); ABG OXYGEN SATURATION 98.4 % (94-97); ABG PCO2 (T) 26.3 mmHg (32.0-45.0); ABG PO2 (T) 213.1 mmHg (75.0-100.0); FCOHb 0.3 % (0.0-3.9); FMetHb 0.7 % (0.0-1.5); FO2Hb 97.4 % (94-97); PEEP 5 cm H2O; RESPIRATORY RATE 18 b/min; TIDAL VOLUME 450 mL; TOTAL HEMOGLOBIN 6.8 G/dl (12.0-16.0)
[2021-08-09] MEDS ORDERED: DOBUTamine-DoBUTrex 500mg/D5W 250 ML IV ONE (14:51)
[2021-08-09 15:05] LABS: PARTIAL THROMBOPLASTIN TIME 38 SECONDS (22-32)
[2021-08-09 15:34] LABS: BASOPHILS # (AUTO) 0.1 X10'3 (0-0.2); EOSINOPHILS # (AUTO) 0.1 X10'3 (0-0.9); MEAN PLATELET VOLUME 9.4 FL (7.4-10.4); MONOCYTES # (AUTO) 1.3 X10'3 (0-0.9); RED BLOOD COUNT 1.59 X10'6 (4.20-5.60); WHITE BLOOD COUNT 16.4 X10'3 (4.5-11.0)
[2021-08-09 15:35] LABS: BASOPHILS % (AUTO) 0.4 % (0-1); EOSINOPHILS % (AUTO) 0.6 % (0-6); LYMPHOCYTES # (AUTO) 3.5 X10'3 (1.1-4.8); LYMPHOCYTES % (AUTO) 21.6 % (21-51); MEAN CORPUSCULAR HEMOGLOBIN 29.3 PG (27.0-31.0); MEAN CORPUSCULAR VOLUME 91.5 FL (78-98); MONOCYTES % (AUTO) 7.8 % (2-12); NEUTROPHILS # (AUTO) 11.5 X10'3 (1.8-7.7); NEUTROPHILS % (AUTO) 69.6 % (42-75); RED CELL DISTRIBUTION WIDTH 15.6 % (11.5-14.5)
[2021-08-09 15:38] LABS: HEMOGLOBIN 4.7 g/dl (12.0-16.0)
[2021-08-09 15:39] LABS: HEMATOCRIT 14.5 % (35.0-45.0); PLATELET COUNT 42 X10'3 (140-440)
[2021-08-09 15:49] LABS: ALBUMIN 1.1 G/DL (3.4-5.0); ALBUMIN/GLOBULIN RATIO 0.8 (1.1-1.5); ALKALINE PHOSPHATASE 41 IU/L (46-116); ANION GAP 29 (8-16); ASPARTATE AMINO TRANSFERASE 756 U/L (10-37); BILIRUBIN,TOTAL 0.5 MG/DL (0.1-1.0); BLOOD UREA NITROGEN 23 MG/DL (7-18); BUN/CREATININE RATIO 11.9 (6.6-38.0); CHLORIDE 112 MMOL/L (99-107); CREATININE 1.94 MG/DL (0.40-0.90); POTASSIUM 5.6 MMOL/L (3.5-5.1); SODIUM 152 MMOL/L (135-145); TOTAL PROTEIN 2.4 G/DL (6.4-8.2); eGFR 25 ML/MIN
[2021-08-09 15:54] LABS: PARTIAL THROMBOPLASTIN TIME 48 SECONDS (22-32)
[2021-08-09 16:01] LABS: ALANINE AMINOTRANSFERASE 630 U/L (12-78)
[2021-08-09 16:08] LABS: CALCIUM 5.3 MG/DL (8.5-10.1); GLUCOSE 659 MG/DL (70-104); TOTAL CARBON DIOXIDE 10.9 MMOL/L (24-32)
== END 2021-08-09 19:35 ==
LOC: ER 18:35 → ED HOLD 23:42 → PCU 3S 08-08 17:05 → ICU 2S 08-09 14:59
PROVIDERS: ADMIT Family Medicine; ATTEND Internal Medicine
PROC: B4201ZZ Computerized Tomography (CT Scan) of Abdominal Aorta using Low Osmolar Contrast (ICD-10-PCS; 2021-08-07)
PROC: B4241ZZ Computerized Tomography (CT Scan) of Superior Mesenteric Artery using Low Osmolar Contrast (ICD-10-PCS; 2021-08-07)
PROC: B4281ZZ Computerized Tomography (CT Scan) of Bilateral Renal Arteries using Low Osmolar Contrast (ICD-10-PCS; 2021-08-07)
PROC: B42C1ZZ Computerized Tomography (CT Scan) of Pelvic Arteries using Low Osmolar Contrast (ICD-10-PCS; 2021-08-07)
PROC: B4211ZZ Computerized Tomography (CT Scan) of Celiac Artery using Low Osmolar Contrast (ICD-10-PCS; 2021-08-07)
PROC: 30233N1 Transfusion of Nonautologous Red Blood Cells into Peripheral Vein, Percutaneous Approach (ICD-10-PCS; principal; 2021-08-08)
DX: I21.4 Non-ST elevation (NSTEMI) myocardial infarction (principal); I63.9 Cerebral infarction, unspecified; I50.43 Acute on chronic combined systolic (congestive) and diastolic (congestive) heart failure; N17.9 Acute kidney failure, unspecified; D62 Acute posthemorrhagic anemia; E87.2 Acidosis; I48.20 Chronic atrial fibrillation, unspecified; I13.0 Hypertensive heart and chronic kidney disease with heart failure and stage 1 through stage 4 chronic kidney disease, or unspecified chronic kidney disease; K92.1 Melena; G81.94 Hemiplegia, unspecified affecting left nondominant side; D69.6 Thrombocytopenia, unspecified; I20.9 Angina pectoris, unspecified; E87.6 Hypokalemia; N18.30 Chronic kidney disease, stage 3 unspecified; F17.210 Nicotine dependence, cigarettes, uncomplicated; D72.829 Elevated white blood cell count, unspecified; J43.9 Emphysema, unspecified; G89.29 Other chronic pain; M47.812 Spondylosis without myelopathy or radiculopathy, cervical region; M50.20 Other cervical disc displacement, unspecified cervical region; M54.9 Dorsalgia, unspecified; Z95.2 Presence of prosthetic heart valve; Z79.899 Other long term (current) drug therapy; Z79.82 Long term (current) use of aspirin; Z71.6 Tobacco abuse counseling; Z86.73 Personal history of transient ischemic attack (TIA), and cerebral infarction without residual deficits
CPT/HCPCS: 36415; 36430; 36600; 70450; 71045; 74174; 80048; 80053; 82550; 82803; 83036; 83605; 83690; 83735; 83880; 84100; 84145; 84443; 84484; 85007; 85018; 85025; 85027; 85610; 85730; 86885; 86900; 86901; 86920; 93005; 93306; 93308; 94002; 94799; 99285; C9113; G0378; J1250; J2250; J2270; J3010; J3480; J7030; P9016; Q9967